=== PATIENT | female | born 1965 | race Caucasian/White ===

== ENCOUNTER 2018-06-19 21:24 | Emergency (ER) | payer MEDICAID, MEDICARE ==
[~2018-06-19] VITALS: Ht 154.9 cm; Wt 82.7 kg
[~2018-06-19 21:24] MED LIST: ACET65TA; BENGAY; COUM1TAB17; PERC5TAB8
[2018-06-19 21:32] VITALS: BP 143/81
[2018-06-19] MEDS ORDERED: PRED20TA PO (22:05)
--- NOTE | 2018-06-20 08:27 | REP ---
Right hip: Two views. History: Pain after a fall. Findings: AP and frog-leg views of the right hip demonstrate advanced arthritis of the right hip with joint space narrowing and sclerosis and large osteophytes on both sides of the right hip articulation. Femoral head remains smooth and rounded. No fracture is seen. Periarticular soft tissues are unremarkable. There are clips in the right lower quadrant of the abdomen. Impression: No fracture seen. Advanced arthritis right hip. Electronically Signed by Maynor Rodriguez MD 06/20/2018 01:03 P
== END 2018-06-19 22:36 | disposition home or self-care (01) ==
LOC: M ED 21:24
DX: M54.31 Sciatica, right side (principal); S70.01XA Contusion of right hip, initial encounter; W01.0XXA Fall on same level from slipping, tripping and stumbling without subsequent striking against object, initial encounter; Y92.018 Other place in single-family (private) house as the place of occurrence of the external cause; K21.9 Gastro-esophageal reflux disease without esophagitis; F33.9 Major depressive disorder, recurrent, unspecified; F41.9 Anxiety disorder, unspecified; Z88.0 Allergy status to penicillin; Z88.8 Allergy status to other drugs, medicaments and biological substances

== ENCOUNTER → 2021-01-18 | Outpatient (CLI) | payer MEDICARE ==
[~2021-01-18] MED LIST changes: +ISOVUE-300 61% 50ML VIAL As Ordered ONE; +LIDOCAINE 1% MDV 20ML VIAL As Ordered ONE; +PRED20TA PO; +methylPREDNISolone 80MG/ML SUSP 1ML VIAL (J1040) As Ordered ONE; +methylPREDNISolone SUSP 40MG/ML 1ML VIAL (DEPO MEDROL) As Ordered ONE
--- NOTE | 2021-01-18 18:10 | REP ---
INDICATION: PRIMARY OSTEOARTHRITIS, LEFT ANKLE AND FOOT. COMPARISON: None TECHNIQUE: The procedure was performed by ZOIE Page, under the direct supervision of Dr. Shea. The benefits and risks of the procedure were explained to the patient, and an informed consent was obtained. Directly prior to the start of the procedure, a formal time-out was completed in the procedure room. The 1st TMT joint of the left foot joint space was localized using fluoroscopic guidance. The skin was prepped and draped in a sterile fashion. Approximately 3 mL of 1% Lidocaine 10 mg/ml was used as a local anesthetic. Using fluoroscopic guidance, a #22 gauge spinal needle was inserted and advanced into the 1st TMT joint of the left foot joint space. Approximately 1 mL of Isovue 300 was injected to verify placement. Three mL of a solution containing 2 mL 1% lidocaine 10 mg/ml and 1 mL Depo-Medrol 40 mg/mL was injected into the joint space. The needle was removed and hemostasis was achieved. The 2nd TMT joint of the left foot joint space was localized using fluoroscopic guidance. The skin was prepped and draped in a sterile fashion. Approximately 3 mL of 1% Lidocaine 10 mg/ml was used as a local anesthetic. Using fluoroscopic guidance, a #22 gauge spinal needle was inserted and advanced into the 2nd TMT joint of the left foot joint space. Approximately 1 mL of Isovue 300 was injected to verify placement. Three mL of a solution containing 2 mL 1% lidocaine 10 mg/ml and 1 mL Depo-Medrol 40 mg/mL was injected into the joint space. The needle was removed and hemostasis was achieved. FINDINGS: The patient tolerated the procedure well and there were no immediate complications. IMPRESSION: 1. Technically successful left foot 1st and 2nd TMT joint injections. 0.1 minutes of fluoroscopy time was utilized for this procedure. Some fluoroscopic images are performed with last image hold technology. These images require no additional radiation. <Electronically signed by Christi Neal > 01/18/21 160 <Electronically signed by Hilario Shea > 01/18/21 [id number]
== END ==
LOC: M RADPRO 11:11
PROVIDERS: ATTEND Physician Assistant Surgical
DX: M19.072 Primary osteoarthritis, left ankle and foot (principal)
CPT/HCPCS: 20600; 77002; J1030; Q9967

== ENCOUNTER 2024-05-05 14:18 | Emergency (ER) | payer MEDICARE, OTHER ==
[~2024-05-05] VITALS: Ht 154.9 cm; Wt 78.2 kg
[~2024-05-05 14:18] MED LIST changes: -ISOVUE-300 61% 50ML VIAL As Ordered ONE; -LIDOCAINE 1% MDV 20ML VIAL As Ordered ONE; -methylPREDNISolone 80MG/ML SUSP 1ML VIAL (J1040) As Ordered ONE; -methylPREDNISolone SUSP 40MG/ML 1ML VIAL (DEPO MEDROL) As Ordered ONE
[2024-05-05 17:57] VITALS: BP 128/90; TEMP 98.8; O2SAT 98
[2024-05-05] MEDS: NORCO, ANEXSIA 5/325MG TABLET (HYDROcodone/ACETAMINOPHEN) PO ONE (20:40)
== END 2024-05-05 20:42 | disposition home or self-care (01) ==
LOC: M ED 14:18
DX: S93.602A Unspecified sprain of left foot, initial encounter (principal); X50.0XXA Overexertion from strenuous movement or load, initial encounter; K21.9 Gastro-esophageal reflux disease without esophagitis; Y92.410 Unspecified street and highway as the place of occurrence of the external cause; Y93.01 Activity, walking, marching and hiking; Y99.9 Unspecified external cause status; Z79.52 Long term (current) use of systemic steroids; Z91.041 Radiographic dye allergy status; Z88.1 Allergy status to other antibiotic agents; Z88.6 Allergy status to analgesic agent; Z88.0 Allergy status to penicillin; Z88.8 Allergy status to other drugs, medicaments and biological substances